=== PATIENT | female | born 1975 | race Caucasian/White ===

== ENCOUNTER → 2016-11-01 | Outpatient (CLI) | payer OTHER ==
[~2016-11-01] MED LIST: ASPIR 8181 MG PO; CELEXA20 MG PO; PRAVACHOL20 MG PO; PROTONIX 40 MG40 M1 PO; PROTONIX40 MG PO
== END ==
LOC: MAMO 08:58
DX: N63 Unspecified lump in breast (principal)
CPT/HCPCS: G0204

== ENCOUNTER → 2016-12-20 | Outpatient (CLI) | payer OTHER | LOC: RAD 14:52 | DX: J40 Bronchitis, not specified as acute or chronic (principal); M50.30 Other cervical disc degeneration, unspecified cervical region | CPT/HCPCS: 71020; 72040 ==

== ENCOUNTER 2020-11-11 12:58 | Emergency (ER) | payer MEDICARE, OTHER ==
[2020-11-11] MEDS ORDERED: CYCLOBENZAPRINE10 MG PO (14:55)
== END 2020-11-11 15:00 | disposition home or self-care (01) ==
LOC: ER1 12:58
DX: S86.912A Strain of unspecified muscle(s) and tendon(s) at lower leg level, left leg, initial encounter (principal); S39.012A Strain of muscle, fascia and tendon of lower back, initial encounter; S29.012A Strain of muscle and tendon of back wall of thorax, initial encounter; E78.5 Hyperlipidemia, unspecified; Z91.041 Radiographic dye allergy status; Z79.899 Other long term (current) drug therapy; F17.290 Nicotine dependence, other tobacco product, uncomplicated; W01.0XXA Fall on same level from slipping, tripping and stumbling without subsequent striking against object, initial encounter; Y92.89 Other specified places as the place of occurrence of the external cause
CPT/HCPCS: 72072; 72100; 73080; 73110; 73564; 96372; 99283; J1885

== ENCOUNTER → 2020-12-15 | Outpatient (CLI) | payer MEDICARE, OTHER ==
[~2020-12-15] MED LIST changes: +CYCLOBENZAPRINE10 MG PO
== END ==
LOC: RAD 13:13
DX: M25.552 Pain in left hip (principal)
CPT/HCPCS: 73502

== ENCOUNTER → 2021-02-15 | Outpatient (CLI) | payer MEDICARE | LOC: KOH-I 08:45 | DX: R05 Cough (principal) | CPT/HCPCS: 71046 ==

== ENCOUNTER → 2021-06-28 | Outpatient (CLI) | payer MEDICARE | LOC: HEART 5 06-21 11:30 | DX: R00.2 Palpitations (principal) ==